=== PATIENT | female | born 1980 | race Caucasian/White ===

== ENCOUNTER 2018-01-06 10:17 | Outpatient (CLI) | payer OTHER | END 2018-01-06 10:18 | disposition home or self-care (01) | LOC: BICMAMMO 10:17 | PROVIDERS: ATTEND Nurse Practitioner Family | DX: N63.10 Unspecified lump in the right breast, unspecified quadrant (principal); N64.89 Other specified disorders of breast; R92.8 Other abnormal and inconclusive findings on diagnostic imaging of breast | CPT/HCPCS: 77066; 88305; G0279 ==

== ENCOUNTER 2024-05-27 12:52 | Day surgery (SDC) | payer BC ==
[2024-05-26 11:40] VITALS: BMI 28.1
[2024-05-27] MEDS ORDERED: PROPOFOL 40 ML ONE ×2 (15:25→17:17)
[2024-05-27] MEDS ORDERED: AFRIN NASAL MIST 15 ML BOT ONE ×2 (16:42→17:10)
[2024-05-27] MEDS ORDERED: Lidocaine 1% (PF) 30 ML VIAL ONE (17:09)
[2024-05-27] MEDS ORDERED: EPINEPHrine 1 MG/ML VIAL ONE ×2 (17:09→17:10)
[2024-05-27] MEDS ORDERED: Rocuronium Bromide 10 MG/ML (10ML VIAL) ONE (17:17)
[2024-05-27] MEDS ORDERED: Ondansetron PF 4 MG/2 ML Vial ONE (17:17)
[2024-05-27] MEDS ORDERED: Dexamethasone 4 mg/ml Vial ONE (17:17)
[2024-05-27] MEDS ORDERED: Lidocaine 1% PF 5 ML VIAL ONE (17:17)
[2024-05-27] MEDS ORDERED: fentaNYL PF 100 MCG/2 ML SYRINGE ONE (17:17)
[2024-05-27] MEDS ORDERED: SUGAMMADEX SODIUM 200 MG/2 ML VIAL ONE (17:18)
[2024-05-27] MEDS ORDERED: methylPREDNISolone Acetate 40 mg/ml Vial ONE (17:19)
[2024-05-27 17:41] LABS: Hematocrit 41.4 % (36.0-47.0)
[2024-05-27] MEDS ORDERED: Triamcinolone 40 MG/ML VIAL ONE (17:42)
== END 2024-05-27 19:00 | disposition home or self-care (01) ==
LOC: SDC 12:52
PROVIDERS: ATTEND Specialist
PROC: 09TL8ZZ Resection of Nasal Turbinate, Via Natural or Artificial Opening Endoscopic (ICD-10-PCS; principal; 2024-05-27)
PROC: 09BR8ZZ Excision of Left Maxillary Sinus, Via Natural or Artificial Opening Endoscopic (ICD-10-PCS; principal; 2024-05-27)
PROC: 09BV8ZZ Excision of Left Ethmoid Sinus, Via Natural or Artificial Opening Endoscopic (ICD-10-PCS; principal; 2024-05-27)
PROC: 09BS8ZZ Excision of Right Frontal Sinus, Via Natural or Artificial Opening Endoscopic (ICD-10-PCS; principal; 2024-05-27)
PROC: 09BT8ZZ Excision of Left Frontal Sinus, Via Natural or Artificial Opening Endoscopic (ICD-10-PCS; principal; 2024-05-27)
PROC: 09BX8ZZ Excision of Left Sphenoid Sinus, Via Natural or Artificial Opening Endoscopic (ICD-10-PCS; principal; 2024-05-27)
PROC: 09BQ8ZZ Excision of Right Maxillary Sinus, Via Natural or Artificial Opening Endoscopic (ICD-10-PCS; principal; 2024-05-27)
PROC: 8E09XBZ Computer Assisted Procedure of Head and Neck Region (ICD-10-PCS; principal; 2024-05-27)
PROC: 09BU8ZZ Excision of Right Ethmoid Sinus, Via Natural or Artificial Opening Endoscopic (ICD-10-PCS; principal; 2024-05-27)
PROC: 09BW8ZZ Excision of Right Sphenoid Sinus, Via Natural or Artificial Opening Endoscopic (ICD-10-PCS; principal; 2024-05-27)
DX: J34.3 Hypertrophy of nasal turbinates (principal); J32.4 Chronic pansinusitis; J33.9 Nasal polyp, unspecified; J30.1 Allergic rhinitis due to pollen; J30.81 Allergic rhinitis due to animal (cat) (dog) hair and dander; Z90.89 Acquired absence of other organs
CPT/HCPCS: 85014; J0171; J1030; J1100; J2001; J2405; J2704; J3301